=== PATIENT | male | born 1980 | race African-American/Black ===

== ENCOUNTER 2020-01-29 18:19 | Observation (INO) | payer BC, OTHER, SELFPAY ==
--- NOTE | ~2020-01-29 | MR_ITS ---
EXAMINATION: MR brain/brain stem wo/w con DATE: 01/30/2020 10:12 CDT INDICATION: CVA. Right-sided numbness and weakness. TECHNIQUE: Magnetic resonance imaging (MRI) of the brain and brainstem was performed without and with 20 cc MultiHance intravenous contrast. Sequences included sagittal and axial T1-weighted SE, axial d iffusion-weighted FS SE, axial T2*-weighted GRE, axial T2-weighted FLAIR Propeller, and axial T2-weig hted Propeller. Apparent diffusion coefficient (ADC) maps were created. COMPARISON: CT dated 01/29/2020 FINDINGS: The brain volume and ventricular system are within normal limits. The brain parenchymal si gnal intensity pattern and parker/white matter is normal and there is no evidence of hemorrhage, space occupying masses or infarctions. The flow signal voids of the major arterial structures about the [place] and within the micah r dural venous sinuses appear grossly unremarkable and patent. The seventh and eighth cranial nerve complexes are normal. The mid sagittal image demonstrates a normal craniovertebral junction and reggie us callosum. The paranasal sinuses are grossly unremarkable. No abnormal contrast enhancement. IMPRESSION: 1: No acute intracranial abnormality. Reviewed, dictated and finalized at location A.
--- NOTE | ~2020-01-29 | XR_ITS ---
EXAMINATION: XR chest 1V portable DATE: 01/29/2020 19:11 INDICATION: Right hemiparesis. TECHNIQUE: A single frontal view of the chest was obtained. COMPARISON: None. FINDINGS: The chest demonstrates clear lungs without pneumonia, pleural effusion, or pneumothorax. Th e heart size is normal. IMPRESSION: 1. No acute cardiopulmonary disease. Reviewed, dictated and finalized at location A.
--- NOTE | ~2020-01-29 | CT_ITS ---
EXAMINATION: CT brain wo con DATE: 01/29/2020 19:07 INDICATION: Right-sided numbness and weakness. TECHNIQUE: Computed tomography (CT) of the head was performed without intravenous contrast. The mA wa s adjusted according to patient size. Iterative reconstruction technique was employed. The dose-lengt h product was 681.00 mGy-cm. COMPARISON: None FINDINGS: There is no intracranial hemorrhage, acute infarction, or abnormal intracranial mass lesion . The ventricles are normal in size. There is mucosal thickening in the paranasal sinuses. The orbits are normal. The mastoid air cells are normal. IMPRESSION: 1. Normal brain. Reviewed, dictated and finalized at location A. IMPRESSION: 1. Normal brain.
--- NOTE | ~2020-01-29 | US_ITS ---
EXAMINATION: US carotid duplex BI DATE: 01/30/2020 10:22 INDICATION: Right-sided weakness TECHNIQUE: Grayscale, color Doppler, and pulsed Doppler images of the cervical carotid arteries were obtained. The degree of vessel stenosis is placed in one of the following categories: normal, <50%, 5 0-69%, >=70% but less than near-occlusion, near-occlusion, or total occlusion. Note that percent sten osis relative to normal distal artery lumen diameter is indirectly measured from velocity measurement s as described by Ranjith, et al. Radiology 2003; 229:340-346. Notes: Normal: Peak systolic velocity <125 centimeters/sec and no plaque <50%. Peak systolic velocity <125 ( EDV <40; ICA/CCA PSV ratio <2.0; used these factors only a tandem lesions or low cardiac output or co ntralateral disease) 50-69 %: PSV 125-230 (EDV 40-100; ratio 2-4) >= 70% but less than near occlusion: PSV greater than 230 (EDV > 100; ratio> 4.0) Near Occlusion: PSV that is variable; markedly narrowed lumen Occlusion: Absent flow on color/spectral Doppler and no lumen on parker scale. COMPARISON: None. FINDINGS: RIGHT: The right common carotid artery (CCA) peak systolic velocity (PSV) is 108 cm/s. The right internal ca rotid artery (ICA) PSV is 69 cm/s. The right ICA end-diastolic velocity (EDV) is 26 cm/s. The right I CA/CCA PSV ratio is 0.6. The external carotid artery (ECA) PSV is 104 cm/s. There is antegrade flow i n the right vertebral artery. LEFT: The left CCA PSV is 142 cm/s. The left ICA PSV is 80 cm/s. The left ICA EDV is 10 cm/s. The left ICA/ CCA PSV ratio is 0.6. The ECA PSV is 78 cm/s. There is antegrade flow in the left vertebral artery. IMPRESSION: 1. Less than 50% stenosis in the right internal carotid artery by sonographic criteria. 2. Less than 50% stenosis in the left internal carotid artery by sonographic criteria. Reviewed, dictated and finalized at location A. IMPRESSION: 1. Less than 50% stenosis in the right internal carotid artery by sonographic blair gomez. 2. Less than 50% stenosis in the left internal carotid artery by sonographic travis gallego.
[2020-01-29 18:20] VITALS: BP 159/109; PULSE 66; RESP 19; O2SAT 99
--- NOTE | 2020-01-29 18:34 | ECG_ITS ---
Measurements Intervals [place] Rate: 65 P: 41 MI: 185 QRS: 70 QRSD: 91 T: 119 QT: 397 QTc: 414 Interpretive Statements SINUS RHYTHM POSSIBLE LEFT ATRIAL ENLARGEMENT BORDERLINE T WAVE ABNORMALITY- LATERAL LEADS BORDERLINE ECG Electronically Signed On 01-30-2020 7:09:00 CDT by Tobi Gaitan D.O.
--- NOTE | 2020-01-29 18:43 | ED.NEUROSD ---
HPI - Neuro Symptoms/Deficit General Chief Complaint: Neuro Symptoms/Deficit Stated Complaint: CERDA/R SIDED NUMBNESS Time Seen by Provider: 01/29/20 18:41 Source: patient and RN notes reviewed Mode of arrival: EMS Limitations: no limitations History of Present Illness HPI Narrative: A 39 y/o male presents to the ED via EMS with worsening rt sided weakness and numbness since he woke up at 1 PM this afternoon. He states that he works nights and when he woke up this afternoon at 1 PM he was having rt facial numbness with RUE and RLE weakness and numbness. He reports an associated severe shooting CERDA. He notes that when he went to work this afternoon that his symptoms became more severe, so he called EMS to be brought here. He also notes that he had similar symptoms years ago and was told that it was d/t his sarcoidosis and HTN. He states that he occasionally misses his HTN medication but that he did take it today. He also states that he has been able to ambulate but with some difficulty. Onset (ago): hour(s) (5.5) Time: 13:00 Last Observed Normal: 02:00 Location: right face, right arm and right leg Quality: weak and numb Context: other (awoke with symptoms) Associated symptoms: headaches (severe shooting) Related Data Home Medications Medication Instructions Recorded Confirmed Vitamin D2 01/29/20 amlodipine 01/29/20 lisinopril 01/29/20 prednisone 01/29/20 Allergies Allergy/AdvReac Type Severity Reaction Status Date / Time ketorolac [From Toradol] AdvReac Vomiting Verified 01/29/20 18:55 Review of Systems Review of Systems: All systems reviewed & are unremarkable except as noted in HPI and below Constitutional: Constitutional: Reports headache(s) (severe shooting) Neurologic: Reports focal weakness (RUE and RLE) and Reports numbness (rt face, RUE, and RLE) [facility] Past Medical History Medical History (Updated 01/29/20 @ 19:35 by Dominik Molina MD) H/O: HTN (hypertension) Sarcoidosis Surgical History Surgical History (Updated 01/29/20 @ 18:55 by Phillip Guillory) Surgical history unknown Social History Social History (Updated 01/29/20 @ 18:55 by Phillip Guillory) Smoking status: Light tobacco smoker Exam Narrative: Exam Narrative: General appearance: Well-developed, well-nourished Skin: Normal color Head: Normocephalic, nontraumatic Eyes: Clear conjunctiva ENT: Oropharynx normal, ears normal, nose normal Neck: Supple, nontender Chest and respiratory: Airway patent, no respiratory distress, no accessory muscle use Heart: Regular rate/rhythm Abdomen: Soft, nontender, no organomegaly, quiet bowel sounds Vascular: Normal peripheral pulses, normal capillary refill. Musculoskeletal: Weakness of the right upper and right lower extremity with decreased sensation Neurologic: Alert and oriented ?3, [employer] DISPOSAL is normal as tested, no gross motor deficit Course Course Emergency Course: Stable Vital Signs Vital signs: Vital Signs Pulse Rate 66 01/29/20 18:20 Respiratory Rate 19 01/29/20 18:20 Blood Pressure 159/109 H 01/29/20 18:20 Pulse Oximetry 99 01/29/20 18:20 Pulse Rate 68 01/29/20 19:16 Respiratory Rate 18 01/29/20 19:16 Blood Pressure 164/107 H 01/29/20 19:16 Pulse Oximetry 100 01/29/20 19:16 MDM - Neuro Symptoms/Deficit MDM Narrative Medical decision making narrative: My concern is the differential diagnosis below. Labs, CT head without contrast ordered. Further plan to follow Differential Diagnosis Differential diagnosis: Likely cerebrovascular accident, transient cerebral ischemia and other (Vasculitis secondary to sarcoidosis) Lab Data Result diagrams: 01/29/20 18:43 01/29/20 18
[2020-01-29 18:49] LABS: Basophils Percent Auto 0.2 % (0.2-1.2); Eosinophils Absolute Auto 0.2 K/mm3 (0-0.3); Eosinophils Percent Auto 4.3 % (0-4.4); Hematocrit 47.9 % (42.0-52.0); Hemoglobin 15.2 g/dL (14.0-18.0); Immature Granulocyte Absolute 0.01 K/mm3 (0.00-0.031); Immature Granulocyte Percent A 0.2 % (0-0.5); Lymphocytes Percent Auto 20.5 % (18.3-44.2); Mean Corpuscular HGB Conc 31.7 g/dl (32-36); Mean Corpuscular Hemoglobin 25.2 pg (26-34); Mean Corpuscular Volume 79.4 fl (80-100); Monocytes Absolute Auto 0.4 K/mm3 (0.1-0.6); Monocytes Percent Auto 7.4 % (2.6-8.5); Neutrophils Absolute Auto 3.6 K/mm3 (1.3-6.7); Neutrophils Percent Auto 67.4 % (45.5-73.1); Platelet Count Result 211 k/mm3 (150-375); Red Blood Count 6.03 M/mm3 (4.6-6.20); Red Cell Distribution Width 14.6 % (11.5-14.5); White Blood Count 5.4 K/mm3 (4.5-10.0)
[2020-01-29 18:55] LABS: Glucose Point of Care 94 (65-105)
[2020-01-29 18:59] LABS: INR 0.9; Prothrombin Time 12.2 Seconds (11.1-14.7)
[2020-01-29 19:00] LABS: Blood Urea Nitrogen 14 mg/dL (9-20); Calcium 8.9 mg/dL (8.4-10.2); Carbon Dioxide 29 mmol/L (22-30); Chloride 102 mmol/L (98-107); Estimated CRCL calculation 90 ml/min; Estimated Glomerular Filt Rate > 60; Glucose 96 mg/dL (75-110); Partial Thromboplastin Time 28.3 SECONDS (22.3-36.8); Potassium 3.3 mmol/L (3.4-5.0); Sodium 137 mmol/L (137-145)
[2020-01-29 19:12] LABS: Troponin I 0.015 ng/mL (0.000-0.034)
[2020-01-29 19:16] VITALS: BP 164/107; PULSE 68; RESP 18; O2SAT 100
[2020-01-29 19:20] LABS: Alanine Aminotransferase 38 U/L (4-50); Albumin Level 4.2 g/dL (3.5-5.1); Alkaline Phosphatase 122 U/L (38-126); Aspartate Amino Transferase 35 U/L (17-59); Bilirubin,Total 0.5 mg/dL (0.2-1.3)
--- NOTE | 2020-01-29 19:32 | PC.NURSE ---
Report given to Liliana LEAL
[2020-01-29 20:09] VITALS: BP 164/109; PULSE 66; RESP 16; O2SAT 99
[2020-01-29 21:09] VITALS: BP 165/104; PULSE 65; RESP 16; TEMP 36.1; O2SAT 99
[2020-01-29 21:10] VITALS: PULSE 76
[2020-01-29 21:13] VITALS: BMI 29.5
--- NOTE | 2020-01-29 21:16 | ADMGEN ---
This patient, Daniele Jenkins , was admitted to Medical Room 340-01. Patient/family oriented to hospital policies and general routines including ID bracelet, bed and alarms, visiting hours, pain management, procedures, bathroom and other care routines, personal items, smoking policy, room service/diet, and visiting hours. Valuables list has been completed. Information on how to activate the Rapid Response Team has been discussed. Patient/Family are encouraged to report perceived risks to care and to ask questions if they do not understand what they are told or what they should do.
[2020-01-29] MEDS: ACETAMINOPHEN 325 MG TABLET 650 MG PO (21:47)
--- NOTE | 2020-01-29 22:50 | PM.IMHP ---
H&P: HPI History of Present Illness Chief complaint: Right-sided weakness, difficulty talking Narrative: Date and time of patient contact: 01/29/2020 at 10:50 p.m. Daniele Jenkins Sr. is a 39 year old male of hyperlipidemia, hypertension, and steroid induced borderline diabetes who presented to the ER via EMS with right-sided facial numbness and right-sided arm and leg weakness. The patient reports that he woke up around 1:00 p.m. with facial numbness. He felt as if his tongue was thick and he was having difficulty with slurring his words. He also noticed right arm paresthesias and right leg paresthesias. His arm and leg felt heavy and it made walking difficult. He is right handed and felt as if his right hand was clumsy and he was unable to complete tasks like he usually does. 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 However his symptoms were disruptive and he decided to come to the ER. The patient reported that when went to sleep at 2:00 a.m. he did not have any of these symptoms. Patient admits that he does have a history of hypertension and does not take his medications exactly as directed. He does not check his blood pressures at home. He will occasionally go to [facility] and check his blood pressure on the machine there. He reports that he has had a chronic right-sided headache ever since he was diagnosed with sarcoidosis last year. The headache is described as pressure like in nature and causes pain behind his eyes. He reports that Tylenol and ibuprofen do nothing to relieve his headache. He reports the pain is moderate to severe all the time. He has not had any difficulty chewing or swallowing food. He reports that his speech seems to be back to baseline. He still feels the paresthesias in his face and upper and lower extremity. He recently went to see his primary care provider (MITA Llamas) and had labs drawn. He was told yesterday he has high cholesterol and was told to eat a diet in low saturated fat. He was also told that his hemoglobin A1c was borderline in that he needed to cut back his prednisone from 10 mg gram a day to 5 mg a day. He denies any cough, congestion, fevers or chills. Review of Systems Review of Systems: Narrative: 12 systems were reviewed with pertinent positives and negatives per HPI. Except as documented in the HPI, all other systems were reviewed and are negative. [facility] Past Medical History Medical History Asthma Bloody stools April 2019 the patient has a referral for gastroenterology but has not scheduled his colonoscopy Chronic headache Depression with anxiety Eczema Essential hypertension GERD (gastroesophageal reflux disease) Hyperlipidemia Sarcoidosis Diagnosed 2019 Scoliosis Steroid-induced hyperglycemia Surgical History Surgical History No history of previous surgery Family History Family History (Updated 01/30/20 @ 00:31 by Mitali Martínez DO) Father , At 52 years old Cerebrovascular accident Colon cancer Mother Diabetes mellitus Hypertension Melanoma Sibling Lupus (systemic lupus erythematosus) Sister; the patient is 1 of 11 children Social History Social History (Updated 01/30/20 @ 00:33 by Mitali Martínez DO) Social History: Primary care provider: MITA Llamas Smoking packs per day: 2.5 Smoking cigarettes per day: 50.0 Years smoked: 20 Smoking pack-years: 50.00 Smoking status: Current some day smoker Tobacco type: cigarettes Second hand tobacco smoke exposure: Yes Additional smoking assessment comments: used to be an everyday smoker, not just on occasion Alcohol intake: never Substance use: never Living arrangements: with family Additional living arrangements comments: The patient lives with his of 8 years. Occupation/Education: occupat
[2020-01-29] MEDS: AMITRIPTYLINE HCL 25 MG TABLET PO (23:20)
[2020-01-30] VITALS: PULSE 63
[2020-01-30 04:00] VITALS: PULSE 64
[2020-01-30 05:08] VITALS: BP 154/71; PULSE 70; RESP 14; TEMP 36.2; O2SAT 100
--- NOTE | 2020-01-30 06:00 | ECHO_ITS ---
Patient Info Name: Daniele Jenkins Age: 39 years : 1980 Gender: Male Ht: 72 in Wt: 224 lbs BSA: 2.30 m2 HR: 58 bpm BP: 154 / 71 mmHg Heart Rhythm: Sinus Rhythm Technical Quality: Good Exam Date: 01/30/2020 10:34 AM Exam Location: [facility] Patient Status: Inpatient Admit Date: 01/29/2020 Staff Ordering Physician: Mitali Martínez DO College Sports Coach: Antoni Echeverria RDCS Attending Provider: Mitali Martínez DO Referring Physician: Tanya GOMEZ; Exam Type: CA echo doppler color flow Study Info Indications 436.0 - CVA Complete two-dimensional, color flow and Doppler transthoracic echocardiogram is performed. Strain analysis performed. History/Risk Factors Acute CVA; HTN, R-sided weakness. Summary 1. Left ventricular systolic function is normal, estimated at >70%. 2. There is mildly increased left ventricular wall thickness. 3. The left ventricular diastolic function is normal. 4. Global longitudinal strain is normal at -19 %. 5. Right atrial chamber dimension is mildly enlarged. 6. Left atrial chamber dimension is mildly enlarged. 7. There is no aortic valve stenosis. 8. There is trace mitral valve regurgitation. 9. There is trace tricuspid valve regurgitation. 10. No pulmonary hypertension, estimated pulmonary arterial systolic pressure is 27 mmHg. Left Ventricle Left ventricular chamber dimension is normal. Left ventricular systolic function is normal, estimated at >70%. There is mildly increased left ventricular wall thickness. The left ventricular diastolic function is normal. Global longitudinal strain is normal at -19 %. Right Ventricle Right ventricular chamber dimension is normal. Right ventricular systolic function is normal. Left Atria Left atrial chamber dimension is mildly enlarged. Right Atria Right atrial chamber dimension is mildly enlarged. Aortic Valve The aortic valve is trileaflet. There is no aortic valve stenosis. There is no aortic valve regurgitation. Pulmonic Valve The pulmonic valve is normal. There is mild pulmonic regurgitation. Mitral Valve The mitral valve has normal leaflets. There is trace mitral valve regurgitation. Tricuspid Valve The tricuspid valve leaflets are normal. There is trace tricuspid valve regurgitation. No pulmonary hypertension, estimated pulmonary arterial systolic pressure is 27 mmHg. Pericardium/Pleural The pericardium appears normal. There is no pericardial effusion. Inferior Vena Cava Normal inferior vena cava with >50% collapse upon inspiration consistent with normal right atrial pressure, 5 mmHg. Aorta The aortic root size at the sinus of Valsalva is normal. Left Ventricular Outflow Tract Name Value Normal LVOT 2D LVOT Diameter 2.2 cm LVOT Doppler LVOT Peak Gradient 6 mmHg LVOT Mean Gradient 3 mmHg LVOT VTI 25 cm LVOT VTI/AV VTI Ratio 0.8 LVOT Stroke Volume 95 ml LVOT CO 5.9 l/min
[2020-01-30 06:45] LABS: Blood Urea Nitrogen 14 mg/dL (9-20); Calcium 8.9 mg/dL (8.4-10.2); Carbon Dioxide 29 mmol/L (22-30); Chloride 103 mmol/L (98-107); Estimated CRCL calculation 79 ml/min; Estimated Glomerular Filt Rate > 60; Glucose 125 mg/dL (75-110); Potassium 3.3 mmol/L (3.4-5.0); Sodium 137 mmol/L (137-145)
[2020-01-30 08:00] VITALS: PULSE 61
[2020-01-30] MEDS: VALACYCLOVIR HCL 500 MG TABLET PO (09:10)
[2020-01-30] MEDS: AMLODIPINE BESYLATE 5 MG TABLET PO (09:10)
[2020-01-30] MEDS: FLUTICASONE PROPIONATE 0.05% NA SPR 16 GM BTL (*BKC) 1 SPRAY NASAL (09:10)
[2020-01-30] MEDS: lisinopriL 20 MG TABLET 40 MG PO (09:11)
[2020-01-30] MEDS: POTASSIUM CHLORIDE 20 MEQ TABLET.ER PO (09:11)
[2020-01-30] MEDS: CHLORHEXIDINE GLUCONATE 0.12% ORAL RINSE 473 ML BTL (*BKC) SWISH/SPIT (09:11)
[2020-01-30] MEDS: predniSONE 5 MG TABLET PO (09:11)
[2020-01-30] MEDS: FAMOTIDINE 20 MG TABLET PO (09:14)
--- NOTE | 2020-01-30 11:48 | CONS_ITS ---
DATE OF CONSULTATION: 01/29/2020 HISTORY OF PRESENT ILLNESS: 39 years old has been admitted to the hospital through the emergency room for the complaint of right-sided facial numbness and right-sided upper extremity and lower extremity weakness in addition to the ongoing history of 1. Hyperlipidemia. 2. Hypertension. 3. Steroid-induced borderline diabetes mellitus. Reportedly woke up around 1 p.m. with facial numbness. Tongue was thick, had difficulties in getting the words out. Speech was somewhat slurred. Right upper extremity was notedly paresthesic so as the right lower extremity. His right upper extremity and lower extremity felt heavy and it was difficult for him to ambulate. 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 He went to sleep at 2 a.m. when he had no symptom. He does have a history of hypertension as mentioned above, and though he is irregular with the antihypertensive treatment. He also complained of chronic right-sided headaches and was diagnosed to have sarcoidosis last year with complaints of pain behind the eyes, which is moderate to severe. No difficulty chewing or swallowing. He was notedly told yesterday that is hypercholesterolemia by his primary care physician and borderline hemoglobin A1c for which the prednisone needed to be cut down further. In the past, the patient has ongoing history of 1. Bronchial asthma. 2. Bloody stools though colonoscopy has not been done. 3. Chronic headache. 4. Anxiety with depression. 5. Eczema. 6. Hypertension. 7. GERD. 8. Hyperlipidemia. 9. Diagnosis of sarcoidosis since 2019, also steroid-induced hyperglycemia and scoliosis. He has not undergone any surgery. SOCIAL HISTORY: Smoking history, 50 pack years. Current some day smoker. Does not drink alcohol. MEDICATIONS: At the time of admission to the hospital, medications include 1. Amitriptyline 25 mg at HS. 2. Amlodipine 5 mg daily. 3. Baclofen 10 mg 3 times a day. 4. Ergocalciferol 1250 mcg weekly. 5. Famotidine 20 mg daily. 6. Lisinopril 40 mg daily. 7. Prednisone 5 mg daily. 8. Valacyclovir 500 mg daily. In addition to fluticasone nasal spray. ALLERGIES: HE IS ALLERGIC TO TORADOL. PHYSICAL EXAMINATION: VITAL SIGNS: Evaluation up until documented him to be afebrile with pulse 66, respiration 19, blood pressure 164/109. GENERAL: Awake, alert, cooperative, in no obvious acute distress. HEENT: Head normocephalic with no cranial bruit. Ear, nose, throat examination normal. NECK: Supple with no cervical bruit. No thyromegaly. No lymphadenopathy. HEART: Regular with no murmur. LUNGS: Clear to auscultation. ABDOMEN: Soft with no organomegaly. SKIN: Normal. NEUROLOGICAL: He is awake, alert, cooperative. Speech not dysphasic, no dysarthric, not dysphonic. Complains of mild right-sided paresthesia, but otherwise the cranial nerve examination is normal. Motor examination revealed him to have subtle weakness of the right lower extremity and reflexes symmetrical. Plantars are downgoing. LABORATORY DATA: Evaluation up until now include CBC with no leukocytosis. Hemoglobin 15.2, platelet count 211. Normal basic metabolic panel, normal hepatic enzymes. IMAGING: Negative CT scan of the head. Negative chest x-ray, normal sinus rhythm and EKG with possible left atrial enlargement and moderate T-wave abnormality. At this stage considering the history of the sarcoidosis, considering history of the neurological symptomatology, MRI will be necessary to document the intracranial pathology, which will benefit for sarcoidosis as well as the possibility of the stroke and further discussion will be
[2020-01-30 12:00] VITALS: PULSE 64
--- NOTE | 2020-01-30 13:42 | PCSTNOTE ---
Please refer to the Bedside Swallow Evaluation in the EMR.
--- NOTE | 2020-01-30 15:58 | PM.DS ---
DS: Diagnosis Admitting Diagnosis Admitting Diagnosis: Cerebral infarction, unspecified Discharge Diagnosis (1) Cerebrovascular accident: Qualifiers: CVA mechanism: unspecified Qualified Code(s): I63.9 - Cerebral infarction, unspecified Code(s): I63.9 - Cerebral infarction, unspecified Status: Acute Assessment and Plan: Suspected CVA. MRI, carotid Dopplers, CT head are normal. Echocardiogram not fully reported. (2) Uncontrolled hypertension: Code(s): I10 - Essential (primary) hypertension Status: Acute Assessment and Plan: Partially due to medication noncompliance (3) Noncompliance w/medication treatment due to intermit use of medication: Code(s): Z91.14 - Patient's other noncompliance with medication regimen Status: Acute Assessment and Plan: Pt to have better control of Bps. (4) Hypokalemia: Code(s): E87.6 - Hypokalemia Status: Acute Assessment and Plan: Potassium is slightly low 3.3. DS: Summary Time Spent with Patient Time attestation: Total time spent providing and/or coordinating discharge services:38 minutes on day of discharge Exam Narrative: Exam Narrative: PHYSICAL EXAM: General: No acute distress HEENT: Mucous membranes are moist Neck: No JVD, carotid bruit Respiratory: Clear to auscultation Cardiovascular: Normal S1-S2, regular rate and rhythm, no murmurs Gastrointestinal: Soft, nontender, nondistended, positive bowel sounds Skin: Non jaundice, no pallor, normal temperature Extremities: No clubbing, cyanosis or edema, 3/5 strength on straight leg raise on the right, 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 Neurological: Alert and oriented, speech is clear, R leg is weak Psychiatric: Pleasant and cooperative DS: Data Data Completed and Pending Labs on day of discharge: Labs from last 24 hours 01/30/20 01/29/20 01/29/20 06:14 18:53 18:43 WBC RBC Hgb Hct MCV MCH MCHC RDW Plt Count MPV Immature Gran % (Auto) Neut % (Auto) Lymph % (Auto) Ogle % (Auto) Eos % (Auto) Baso % (Auto) Lymph # (Auto) Ogle # (Auto) Eos # (Auto) Baso # (Auto) Abs Immat Gran (auto) Absolute Neuts (auto) Absolute Nucleated RBC Nucleated RBC % PT INR APTT Sodium 137 Potassium 3.3 L Chloride 103 Carbon Dioxide 29 BUN 14 Creatinine 1.30 Estim Creat Clear Calc 79 Estimated GFR > 60 Glucose 125 H POC Capillary Glucose 94 Calcium 8.9 Total Bilirubin 0.5 Direct Bilirubin 0.0 AST 35 ALT 38 Alkaline Phosphatase 122 Troponin I Total Protein 8.0 Albumin 4.2 01/29/20 01/29/20 01/29/20 18:43 18:43 18:43 WBC 5.4 RBC 6.03 Hgb 15.2 Hct 47.9 MCV 79.4 L MCH 25.2 L MCHC 31.7 L RDW 14.6 H Plt Count 211 MPV 11.0 H Immature Gran % (Auto) 0.2 Neut % (Auto) 67.4 Lymph % (Auto) 20.5 Ogle % (Auto) 7.4 Eos % (Auto) 4.3 Baso % (Auto) 0.2 Lymph # (Auto) 1.10 Ogle # (Auto) 0.4 Eos # (Auto) 0.2 Baso # (Auto) 0.0 Abs Immat Gran (auto) 0.01 Absolute Neuts (auto) 3.6 Absolute Nucleated RBC 0.0 Nucleated RBC % 0.0 PT 12.2 INR 0.9 APTT 28.3 Sodium 137 Potassium 3.3 L Chloride 102 Carbon Dioxide 29 BUN 14 Creatinine 1.30 Estim Creat Clear Calc 90 Estimated GFR > 60 Glucose 96 POC Capillary Glucose Calcium 8.9 Total Bilirubin Direct Bilirubin AST ALT Alkaline Phosphatase Troponin I 0.015 Total Protein Albumin Discharge Plan Discharge Attending physician on discharge: Gypsy De Consulting providers: Nick Walter Discharging Clinician: Gypsy De Anticipated Discharge Date/Time: 01/30/20 16:04 Patient Disposition: Home, Self-Care Activity: as tolerated Diet: heart healthy Patient Instructions:
== END 2020-01-30 16:29 | disposition home or self-care (01) ==
LOC: ANHED 21:00 → ANH3MED 23:46
PROVIDERS: Emergency Medicine; Admitting Provider Internal Medicine; Emergency Provider Emergency Medicine; PCP Physician Assistant; Visit Provider Family Medicine
DX: I63.9 Cerebral infarction, unspecified (principal); R29.703 NIHSS score 3; I10 Essential (primary) hypertension; E87.6 Hypokalemia; E78.5 Hyperlipidemia, unspecified; R73.03 Prediabetes; D86.9 Sarcoidosis, unspecified; F17.210 Nicotine dependence, cigarettes, uncomplicated; Z79.899 Other long term (current) drug therapy; Z91.14 Patient's other noncompliance with medication regimen
CPT/HCPCS: 36415; 70450; 70553; 71045; 80048; 80076; 84484; 85025; 85610; 85730; 92610; 93005; 93306; 93880; 97161; 97165; 99285; A4248; A9270; A9577; G0378; J7512

== ENCOUNTER 2020-04-18 19:24 | Emergency (ER) | payer BC, OTHER, SELFPAY ==
--- NOTE | ~2020-04-18 | CT_ITS ---
EXAMINATION: CT brain wo con DATE: 04/18/2020 19:58 INDICATION: Right hemiparesis. TECHNIQUE: Computed tomography (CT) of the head was performed without intravenous contrast. The mA wa s adjusted according to patient size. Iterative reconstruction technique was employed. The dose-lengt h product was 605.33 mGy-cm. COMPARISON: Head CT 01/29/2020, brain MRI 01/30/2020 FINDINGS: There is no intracranial hemorrhage, acute infarction, or abnormal intracranial mass lesion . The ventricles are normal in size. There is mild mucosal thickening in the paranasal sinuses. The m astoid air cells are normal. The orbits are normal. IMPRESSION: 1. Normal brain. Reviewed, dictated and finalized at location A. IMPRESSION: 1. Normal brain.
[2020-04-18 19:25] VITALS: BP 156/89; PULSE 79; RESP 17; TEMP 36.7; O2SAT 97
--- NOTE | 2020-04-18 19:36 | ECG_ITS ---
Measurements Intervals [place] Rate: 81 P: 68 ND: 161 QRS: 44 QRSD: 92 T: 49 QT: 354 QTc: 413 Interpretive Statements SINUS RHYTHM NONSPECIFIC T-WAVE ABNORMALITY- LATERAL LEADS BORDERLINE ECG Electronically Signed On 04-19-2020 7:18:41 CDT by Tobi Gaitan D.O.
--- NOTE | 2020-04-18 19:46 | ED.NEUROSD ---
HPI - Neuro Symptoms/Deficit General Chief Complaint: Neuro Symptoms/Deficit Stated Complaint: extremity pain Time Seen by Provider: 04/18/20 19:26 History of Present Illness HPI Narrative: 39 yo male w/ h/o right sided weakness, HTN, sarcoidosis presents for weakness. Right sided weakness throughout the day today. Getting worse. Associated with headache, chest pain, right forearm pain. He was seen here with similar symptoms in January. His work-up was negative, but he reports symptoms never totally resolved and he is currently in physical therapy for this weakness. He is not able to tell me if he is actually weaker at this time or just has percieved heaviness . Related Data Home Medications Medication Instructions Recorded Confirmed amitriptyline 75 mg PO HS 01/29/20 01/29/20 amlodipine 10 mg PO DAILY 01/29/20 01/29/20 baclofen 10 mg PO TID PRN 01/29/20 01/29/20 chlorhexidine gluconate 0.12 % BUCCAL BID 01/29/20 01/29/20 ergocalciferol (vitamin D2) 1,250 mcg PO WEEKLY 01/29/20 01/29/20 famotidine [Pepcid] 20 mg PO DAILY 01/29/20 01/29/20 fluticasone propionate 50 mcg INTRANASAL DAILY 01/29/20 01/29/20 lisinopril 40 mg PO DAILY 01/29/20 01/29/20 prednisone 5 mg PO DAILY 01/29/20 01/29/20 valacyclovir 500 mg PO DAILY 01/29/20 01/29/20 Allergies Allergy/AdvReac Type Severity Reaction Status Date / Time ketorolac [From Toradol] AdvReac Vomiting Verified 01/29/20 18:55 tramadol AdvReac Nausea and Verified 04/18/20 19:40 Vomiting Review of Systems Review of Systems: All systems reviewed & are unremarkable except as noted in HPI and below Constitutional: Constitutional: Denies fever(s) and Reports weakness Cardiovascular: Cardiovascular: Reports chest pain Respiratory: Respiratory: Reports dyspnea Gastrointestinal: Gastrointestinal: Denies abdominal pain Musculoskeletal: Musculoskeletal: Denies back pain Neurologic: Reports headache(s), Reports numbness and Reports weakness Psychiatric: Psychiatric: Reports anxiety PMFSH Past Medical History Medical History Asthma Bloody stools April 2019 the patient has a referral for gastroenterology but has not scheduled his colonoscopy Chronic headache Depression with anxiety Eczema Essential hypertension GERD (gastroesophageal reflux disease) Hyperlipidemia Sarcoidosis Diagnosed 2019 Scoliosis Steroid-induced hyperglycemia Surgical History Surgical History No history of previous surgery Family History Family History Father , At 52 years old Cerebrovascular accident Colon cancer Mother Diabetes mellitus Hypertension Melanoma Sibling Lupus (systemic lupus erythematosus) Sister; the patient is 1 of 11 children Social History Social History Social History: Primary care provider: MITA Llamas Smoking packs per day: 2.5 Smoking cigarettes per day: 50.0 Years smoked: 20 Smoking pack-years: 50.00 Smoking status: Current some day smoker Tobacco type: cigarettes Second hand tobacco smoke exposure: Yes Additional smoking assessment comments: used to be an everyday smoker, not just on occasion Alcohol intake: never Substance use: never Additional living arrangements comments: The patient lives with his of 8 years. 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 Gender identity (if verbalized by the patient): Male Spiritual care concerns: No Agree to blood products: Yes Exam Const: General: healthy appearing, no acute distress and alert Orientation/consciousness: patient oriented x3 HENMT: Head: normal to inspection Eyes: Pupils: Equal, round and reactive pupils present Neck: Neck: normal visual inspection and no
[2020-04-18] MEDS: SODIUM CHLORIDE 0.9% IV 1,000 ML 999 ML IV CONT (20:09)
[2020-04-18 20:28] LABS: Basophils Percent Auto 0.3 % (0.2-1.2); Eosinophils Absolute Auto 0.1 K/mm3 (0-0.3); Eosinophils Percent Auto 1.1 % (0-4.4); Hematocrit 47.2 % (42.0-52.0); Hemoglobin 15.4 g/dL (14.0-18.0); Immature Granulocyte Absolute 0.07 K/mm3 (0.00-0.031); Immature Granulocyte Percent A 0.6 % (0-0.5); Lymphocytes Percent Auto 15.1 % (18.3-44.2); Mean Corpuscular HGB Conc 32.6 g/dl (32-36); Mean Corpuscular Hemoglobin 26.4 pg (26-34); Mean Platelet Volume 10.2 fl (7.4-10.4); Monocytes Absolute Auto 0.9 K/mm3 (0.1-0.6); Monocytes Percent Auto 7.3 % (2.6-8.5); Neutrophils Percent Auto 75.6 % (45.5-73.1); Platelet Count Result 244 k/mm3 (150-375); Red Blood Count 5.83 M/mm3 (4.6-6.20); Red Cell Distribution Width 14.5 % (11.5-14.5); White Blood Count 11.9 K/mm3 (4.5-10.0)
[2020-04-18 20:30] VITALS: BP 148/83; PULSE 74; RESP 16; O2SAT 98
[2020-04-18 20:36] LABS: Prothrombin Time 12.4 Seconds (11.1-14.7)
[2020-04-18 20:37] LABS: Partial Thromboplastin Time 26.1 SECONDS (22.3-36.8)
[2020-04-18 20:40] LABS: Alanine Aminotransferase 33 U/L (4-50); Albumin Level 4.2 g/dL (3.5-5.1); Alkaline Phosphatase 132 U/L (38-126); Aspartate Amino Transferase 24 U/L (17-59); Bilirubin,Total 0.3 mg/dL (0.2-1.3); Blood Urea Nitrogen 17 mg/dL (9-20); Calcium 8.9 mg/dL (8.4-10.2); Carbon Dioxide 28 mmol/L (22-30); Chloride 100 mmol/L (98-107); Creatine Kinase 271 U/L (55-170); Estimated CRCL calculation 88 ml/min; Estimated Glomerular Filt Rate > 60; Glucose 113 mg/dL (75-110); Potassium 3.9 mmol/L (3.4-5.0); Sodium 136 mmol/L (137-145)
[2020-04-18 20:52] LABS: Troponin I < 0.012 ng/mL (0.000-0.034)
[2020-04-18 21:42] VITALS: BP 151/93; PULSE 91; RESP 15; O2SAT 99
[2020-04-18 22:35] VITALS: BP 161/96; PULSE 88; RESP 19; TEMP 36.7; O2SAT 99
== END 2020-04-18 22:37 | disposition home or self-care (01) ==
PROVIDERS: Emergency Provider Emergency Medicine; PCP Physician Assistant
DX: R53.1 Weakness (principal); I10 Essential (primary) hypertension; D86.9 Sarcoidosis, unspecified; J45.909 Unspecified asthma, uncomplicated; F41.8 Other specified anxiety disorders; K21.9 Gastro-esophageal reflux disease without esophagitis; E78.5 Hyperlipidemia, unspecified; F17.210 Nicotine dependence, cigarettes, uncomplicated; R94.31 Abnormal electrocardiogram [ECG] [EKG]
CPT/HCPCS: 36415; 70450; 80053; 82550; 84484; 85025; 85610; 85730; 93005; 96360; 99284; J7030

== ENCOUNTER 2020-11-17 17:47 | Emergency (ER) | payer OTHER, SELFPAY ==
--- NOTE | ~2020-11-17 | XR_ITS ---
EXAMINATION: XR thoracic spine 3V DATE: 11/17/2020 20:01 INDICATION: Upper back pain post injury TECHNIQUE: One AP, lateral and lateral swimmer's views of the thoracic spine were obtained. COMPARISON: Chest radiograph dated 01/29/2020 FINDINGS: 27 degree upper thoracic levorotoscoliosis measured between T3 and T7. Potentially incompletely visua lized thoracolumbar dextroscoliosis measuring 18 degrees between T9 and L1. Age-indeterminate but lik zak mild anterior wedging of a couple upper thoracic vertebral bodies, likely T3 and T4 with no evide nt linear lucencies, sclerosis or sharply angulated cortex to suggest acute fracture. There is also m ild disc height loss at a few levels in the upper thoracic spine from what is likely T2-T3 through T4 -T5. IMPRESSION: 1. Mild S-shaped thoracolumbar scoliosis with mild upper thoracic spondylosis. 2. Mild anterior wedging of a couple upper thoracic vertebral bodies, likely T3 and T4. Reviewed, dictated and finalized at location A. TITY SUR[employer]YOR
[2020-11-17 17:50] VITALS: BP 138/96; PULSE 68; RESP 14; TEMP 36.5; O2SAT 99
[2020-11-17] MEDS: KETOROLAC 30 MG/ML VIAL (*BKC) IV PUSH (19:38)
[2020-11-17] MEDS: diazePAM (*CRX) 5 MG TABLET PO (20:05)
--- NOTE | 2020-11-17 20:25 | ED.BACK ---
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 with sudden onset of pain to the mid thoracic region with history of scoliosis patient has not had anything for pain notes moderate aching pain worse with activity or movement patient denies other injuries or complaints does not appear to be in pain or uncomfortable upon arrival Related Data Home Medications Medication Instructions Recorded Confirmed sildenafil 11/17/20 11/17/20 Allergies Allergy/AdvReac Type Severity Reaction Status Date / Time tramadol AdvReac Vomiting Verified 11/17/20 19:02 Review of Systems Review of Systems: All systems reviewed & are unremarkable except as noted in HPI and below PMFSH Past Medical History Medical History (Updated 11/17/20 @ 20:29 by Leif Ortiz PA-C) Hypertension Social History Social History (Updated 11/17/20 @ 20:28 by Leif Ortiz PA-C) Smoking status: Current every day smoker Exam Narrative: Exam Narrative: GENERAL: Well-appearing, well-nourished, and in no acute distress. HEAD: Normocephalic, atraumatic. EYES: PERRLA and EOMI. ENT: Nares clear, no rhinorrhea or epistaxis. Mucous membranes moist. CHEST: Clear to auscultation. No respiratory distress. No wheezes rales or rhonchi HEART: Regular rate and rhythm. No murmur heard. N EXTREMITIES: Normal range of motion. No edema. Midthoracic back pain no deformities noted SKIN: Warm, dry, no rash. NEURO: No focal deficits. Alert and oriented x3. Cranial nerves II through XII grossly intact PSYCH: Normal mood and affect. Course Course Emergency Course: Patient evaluated the emergency department likely with muscle strain of the thoracic region will be discharged home with primary care follow-up will be managed with medications provided with reasons to return hemodynamically stable no distress Vital Signs Vital signs: Vital Signs Temperature 97.7 F 11/17/20 17:50 Pulse Rate 68 11/17/20 17:50 Respiratory Rate 14 11/17/20 17:50 Blood Pressure 138/96 H 11/17/20 17:50 Pulse Oximetry 99 11/17/20 17:50 Temperature 97.7 F 11/17/20 17:50 Pulse Rate 68 11/17/20 17:50 Respiratory Rate 14 11/17/20 17:50 Blood Pressure 138/96 H 11/17/20 17:50 Pulse Oximetry 99 11/17/20 17:50 MDM - Back Pain/Injury MDM Narrative Medical decision making narrative: Patients injury or pain is consistent with musculoskeletal etiology. No signs of neurological or vascular compromise on exam. Compartments and tisues are soft without signs of compartment syndrome. Pain is felt appropriate for further evaluation on an outpatient basis. Imaging Data Radiologist's impression: ITS Impressions Thoracic Spine X-Ray 11/17/20 20:11 IMPRESSION: 1. Mild S-shaped thoracolumbar scoliosis with mild upper thoracic spondylosis. 2. Mild anterior wedging of a couple upper thoracic vertebral bodies, likely T3 and T4. Discharge Plan Discharge Clinical Impression: Strain of thoracic back region Patient Disposition: Home, Self-Care Condition: Stable Instructions: Antibiotic Form, Thoracic Back Strain (ED) Additional Instructions: Medications as needed and prescribed. Limit lifting and bending. You may apply heat or cold to the area as needed. Follow up with your doctor for further care in the next 5 to 7 days. Contact your doctor or return to the emergency department if you develop problems with bladder or bowel function, weakness or loss of feeling in one or both of your legs, or any other serious concerns. Prescriptions: New lid
[2020-11-17 20:43] VITALS: BP 129/89; PULSE 66; RESP 18; TEMP 36.7; O2SAT 100
== END 2020-11-17 20:43 | disposition home or self-care (01) ==
PROVIDERS: Emergency Provider Emergency Medicine; PCP Physician Assistant
DX: S29.012A Strain of muscle and tendon of back wall of thorax, initial encounter (principal); I10 Essential (primary) hypertension; F17.200 Nicotine dependence, unspecified, uncomplicated
CPT/HCPCS: 72072; 96374; 99284; A9270; J1885